=== PATIENT | female | born 1955 | race Caucasian/White ===

== ENCOUNTER → 2019-09-06 | Outpatient (CLI) | payer MEDICARE ==
--- NOTE | 2019-09-06 09:14 | Diagnostic Imaging Report ---
EXAMINATION: CT CHEST SCREENING WO INDICATION: Lung cancer screening in a current smoker with 45 pack year history of smoking. Patient denies any current chest related complaints. TECHNIQUE: Low-dose helical CT of the chest without IV contrast (Adult Lung Cancer Screening) protocol was performed. Coronal and sagittal reformats were obtained. All CT scans use one or more of the following dose optimizing techniques: automated exposure control, MA and/or KvP adjustment based on a patient size and exam type, or iterative reconstruction. COMPARISON: None available. Baseline exam. FINDINGS: LUNG NODULES, solid unless otherwise specified, axial series 2: Right lung: * There are 2 3 mm sasha-fissural nodules along the anterior aspect of the minor fissure (images 114 and 115) * There is a 4 mm subpleural nodule in the posterior segment of the right lower lobe (image 134) Left lung: * No nodules identified. OTHER FINDINGS: Low-dose technique and absence of intravenous contrast decreases sensitivity for detection of lymphadenopathy and vascular pathology. TRACHEA AND MAIN BRONCHI: Patent without evidence of tracheal or endobronchial lesion. LUNGS AND PLEURA: There is mild biapical pleural parenchymal scarring. Mild upper lobe predominant paraseptal and centrilobular emphysematous change is demonstrated in both lungs. Subtle reticular opacities are demonstrated in the periphery of the lung bases. No focal consolidation or pulmonary mass. No pleural effusion or pneumothorax. MEDIASTINUM AND REMBERTO: The visualized thyroid gland is unremarkable. Mildly prominent precarinal and subcarinal lymph nodes are not frankly enlarged by CT size criteria and may be reactive in nature. There is no mediastinal, hilar, or axillary lymphadenopathy. Esophagus is nondistended. HEART AND VESSELS: Heart is normal in size. No pericardial effusion. Atherosclerotic calcification involves the aorta and its branches, including the coronary arteries. Thoracic aorta is nonaneurysmal. DIAPHRAGM AND UPPER ABDOMEN: There is suggestion of a small hiatal hernia. The patient is status post cholecystectomy. Ill-defined subcentimeter exophytic focus projecting laterally off the upper pole of the left kidney is too small to characterize but likely represents a cyst. No acute or concerning finding of the diaphragm or visualized upper abdomen. CHEST WALL: Unremarkable. BONES: Multilevel degenerative changes involve the spine. No acute osseous abnormality. IMPRESSION: 1. Scattered small pulmonary nodules in the right lung measuring up to 4 mm are of very low suspicion for clinically active malignancy. Continued annual screening is recommended. 2. No acute cardiopulmonary process. Mild emphysematous changes are demonstrated in both upper lobes. Mild degree of reticular opacities are demonstrated in the periphery of the lung bases, compatible with mild fibrotic change/interstitial lung disease. Other chronic and incidental findings are detailed above, including aortic and coronary artery calcifications. Lung-RADS Category: 2, Benign appearance or behavior. Nodules with a very low likelihood of becoming a clinically active cancer due to size or lack of growth. RECOMMENDATIONS: Continue annual screening with low-dose CT in 12 months. MODIFIER: None. Dictated by: Dictated on workstation # [id number]
== END ==
LOC: RAD 08:03
PROVIDERS: ATTEND Family Medicine
DX: Z12.2 Encounter for screening for malignant neoplasm of respiratory organs (principal); J43.9 Emphysema, unspecified; R91.8 Other nonspecific abnormal finding of lung field